=== PATIENT | female | born 1985 | race Hispanic/Latino ===

== ENCOUNTER 2023-11-05 15:18 | Outpatient (CLI) | payer OTHER | END 2023-11-05 15:19 | disposition home or self-care (01) | LOC: CSHULT 15:18 | PROVIDERS: ATTEND Advanced Practice Midwife | DX: O09.512 Supervision of elderly primigravida, second trimester (principal); Z3A.27 27 weeks gestation of pregnancy | CPT/HCPCS: 76805 ==

== ENCOUNTER 2024-01-24 12:00 | Inpatient (IN) | payer MEDICAID, OTHER, SELFPAY ==
[2024-01-24 16:10] LABS: Hemoglobin 12.4 g/dL (12.0-15.5); Platelet Count 204 10x3/uL (150-450)
[2024-01-24 16:46] LABS: Syphilis Antibody Nonreactive (Nonreactive); Syphilis Antibody Index 0.05 S/CO (<1.00 Non-Reactive)
[2024-01-24 16:47] LABS: HBsAg Index 0.15 S/CO (0-0.99); HIV (1/2) Antibody/Antigen Non-Reactive (NonReactive); HIV 1/2 INDEX 0.05 S/CO (<1.00); Hep B Surf Ag Non-Reactive S/CO (NonReactive)
[2024-01-24] MEDS ORDERED: Carboprost 250 MCG/ML AMP IM PRN (20:43)
[2024-01-24] MEDS ORDERED: hydrALAZINE 20 MG/ML VIAL SLOW IVP PRN (20:43)
[2024-01-24] MEDS ORDERED: Bicitra 30 ML UDCUP PO PRN (20:43)
[2024-01-24] MEDS ORDERED: Promethazine HCl 25 MG/ML VIAL IM PRN (20:43)
[2024-01-24] MEDS ORDERED: Methylergonovine 0.2 MG/ML VIAL IM PRN (20:43)
[2024-01-24] MEDS ORDERED: Famotidine/PF 20 mg/2ml Vial SLOW IVP PRN (20:43)
[2024-01-24] MEDS ORDERED: Misoprostol 200 MCG TAB PR PRN (20:43)
[2024-01-24] MEDS ORDERED: Diphenoxylate HCl/Atropine Tablet PO PRN (20:43)
[2024-01-24] MEDS ORDERED: Tranexamic Acid 1,000 MG/10 ML VIAL IVP PRN (20:43)
[2024-01-24] MEDS ORDERED: Oxytocin 30 units/NS 500 ML 500 ML IV SCH (20:45)
[2024-01-24] MEDS ORDERED: CEFAZOLIN 2 GM in Sodium Chloride 0.9% 100 ML IVPB SCH (20:45)
[2024-01-25 10:36] VITALS: BMI 23.8
[2024-01-25] MEDS: Lactated Ringer's 1,000 ML IV SCH (10:40)
[2024-01-25] MEDS ORDERED: Promethazine HCl 25 MG/ML VIAL IM PRN ×2 (11:39→15:08)
[2024-01-25] MEDS ORDERED: Ketorolac Tromethamine 30 MG (1 mL) VIAL IVP PRN (11:39)
[2024-01-25] MEDS ORDERED: Naloxone HCl 0.4 mg/ml Vial IVP PRN ×2 (11:39)
[2024-01-25] MEDS ORDERED: Ondansetron PF 4 MG/2 ML Vial IVP PRN ×3 (11:39→15:08)
[2024-01-25] MEDS ORDERED: diphenhydrAMINE 50 MG/ML VIAL IVP PRN (11:39)
[2024-01-25] MEDS ORDERED: Naloxone HCl 0.4 mg/ml Vial IV PRN (11:39)
[2024-01-25] MEDS ORDERED: Moisturizing Cream (Eucerin) 113 GM JAR TOP PRN (11:39)
[2024-01-25] MEDS ORDERED: Bicitra 30 ML UDCUP PO PRN (11:40)
[2024-01-25] MEDS ORDERED: Communication Order-Pharmacy FS SCH (11:45)
[2024-01-25] MEDS: CEFAZOLIN 2 GM in Sodium Chloride 0.9% 100 ML IVPB SCH (11:53)
[2024-01-25] MEDS: Ondansetron PF 4 MG/2 ML Vial IVP PRN (11:53)
[2024-01-25] MEDS: Famotidine/PF 20 mg/2ml Vial SLOW IVP PRN (11:53)
[2024-01-25] MEDS ORDERED: HYDROmorphone 0.5 MG/0.5 ML SYRINGE SLOW IVP PRN (13:00)
[2024-01-25] MEDS ORDERED: Meperidine HCl/PF 25 MG (1 mL) VIAL SLOW IVP PRN (13:00)
[2024-01-25] MEDS: Ketorolac Tromethamine 30 MG (1 mL) VIAL IVP SCH ×2 (14:17→20:16)
[2024-01-25] MEDS: fentaNYL 50 mcg/mL 1 mL Vial SLOW IVP PRN (14:55)
[2024-01-25] MEDS ORDERED: Bisacodyl 10 MG SUPP PR PRN (15:08)
[2024-01-25] MEDS ORDERED: diphenhydrAMINE 25 MG CAP PO PRN (15:08)
[2024-01-25] MEDS ORDERED: hydrALAZINE 20 MG/ML VIAL SLOW IVP PRN (15:08)
[2024-01-25] MEDS ORDERED: Lanolin Ointment 7 GM TUBE TOP PRN (15:08)
[2024-01-25] MEDS: Morphine PF 10 MG/10 ML VIAL ONE (15:11)
[2024-01-25] MEDS: fentaNYL 50 mcg/mL 1 mL Vial ONE (15:11)
[2024-01-25] MEDS: Ondansetron PF 4 MG/2 ML Vial ONE (15:12)
[2024-01-25] MEDS: Erythromycin Base 0.5% Oint 1 GM TUBE ONE (15:12)
[2024-01-25] MEDS: Oxytocin 10 UNITS/ML VIAL ONE (15:12)
[2024-01-25] MEDS: Phytonadione Neonatal 1 MG/0.5 ML AMP ONE (15:12)
[2024-01-25] MEDS: PHENYLEPHRINE-NS 100 MCG/ML 10 ML SYRINGE ONE (15:13)
[2024-01-25] MEDS: Hepatitis B Vaccine 10 MCG/0.5 ML SYR ONE (15:13)
[2024-01-25] MEDS: Boostrix 0.5 ML (Tdap) VIAL (>/=7 yrs of age) IM ONE (16:00)
[2024-01-25] MEDS: HYDROmorphone 0.5 MG/0.5 ML SYRINGE SLOW IVP SCH (17:52)
[2024-01-25] MEDS ORDERED: Ketorolac Tromethamine 30 MG (1 mL) VIAL IVP SCH (18:00)
[2024-01-25] MEDS: Docusate 100 MG CAP PO SCH (20:16)
[2024-01-26] MEDS: Simethicone Chewable 80 MG TAB PO PRN (00:44)
[2024-01-26] MEDS: HYDROcodone/Acetaminophen 5/325 mg Tablet PO PRN ×2 (00:44→06:08)
[2024-01-26] MEDS: Ferrous Sulfate 325 MG TAB PO SCH (00:47)
[2024-01-26 04:53] LABS: Hematocrit 31.6 % (34.9-44.5); Hemoglobin 11.1 g/dL (12.0-15.5); Mean Corpuscular HGB CONC 35.1 g/dL (32.0-36.0); Mean Corpuscular Volume 91.1 fL (81.6-98.3); Mean Platelet Volume 12.6 fL (7.4-10.4); Platelet Count 159 10x3/uL (150-450); RBC Distribution Width 13.2 % (11.5-14.5); Red Blood Cell (RBC) Count 3.47 10x6/uL (3.90-5.03); White Blood Cell (WBC) Count 7.7 10x3/uL (3.5-10.5)
[2024-01-26] MEDS: Prenatal Vitamin 1 TAB PO SCH (08:00)
[2024-01-26] MEDS: Ibuprofen 800 MG TAB PO SCH (13:07)
[2024-01-27] MEDS: Hepatitis B Vaccine 10 MCG/0.5 ML SYR ONE (07:10)
[2024-01-28 07:39] VITALS: BP 93/53; TEMP 97.8
== END 2024-01-28 10:45 | disposition home or self-care (01) | DRG 788 ==
LOC: CSHLD 01-25 10:04 → CSHPP 01-25 15:30
PROVIDERS: ADMIT Family Medicine; ATTEND Family Medicine
PROC: 10D00Z1 Extraction of Products of Conception, Low, Open Approach (ICD-10-PCS; principal; 2024-01-25)
DX: O99.824 Streptococcus B carrier state complicating childbirth (principal); Z3A.39 39 weeks gestation of pregnancy; Z37.0 Single live birth; O99.284 Endocrine, nutritional and metabolic diseases complicating childbirth; E03.9 Hypothyroidism, unspecified
CPT/HCPCS: 36415; 51702; 76815; 85014; 85018; 85027; 85049; 86780; 86850; 86900; 86901; 87340; 87389; C1889; J1170; J1885; J2274; J2405; J2590; J3010; J7120; S0028